=== PATIENT | male | born 2000 | race Caucasian/White ===

== ENCOUNTER 2021-01-14 20:03 | Observation (INO) | payer OTHER ==
[~2021-01-14] VITALS: Ht 180.3 cm; Wt 72.6 kg
[2021-01-14 20:19] VITALS: BP 120/80
[2021-01-14 21:20] LABS: URINE BILIRUBIN NEGATIVE (Negative); URINE BLOOD NEGATIVE (Negative); URINE CLARITY CLEAR; URINE COLOR YELLOW; URINE GLUCOSE-RANDOM NEGATIVE (Negative); URINE KETONES 1+ (Negative); URINE LEUKOCYTES-REFLEX NEGATIVE (Negative); URINE NITRITE-REFLEX NEGATIVE (Negative); URINE PROTEIN TRACE (Negative)
[2021-01-14 21:34] LABS: HEMATOCRIT 43.8 % (42.0-52.0); HEMOGLOBIN 15.4 gm/dL (14.0-18.0); MCH 29.8 pg (26.0-34.0); MCHC 35.2 g/dL (28.0-37.0); MCV 84.6 fL (80.0-100.0); MPV 8.6 fl. (7.2-11.1); NUCLEATED RBCS 0 /100WBC; PLATELET COUNT* 234 thou/uL (150-400); RBC 5.18 mil/uL (4.50-6.00); WBC 20.6 thou/uL (4.0-11.0)
[2021-01-14 21:40] LABS: CALCIUM 8.9 mg/dL (8.5-10.1); POTASSIUM 3.5 mmol/L (3.5-5.1)
[2021-01-14 21:44] LABS: ALBUMIN 4.4 g/dL (3.4-5.0); TOTAL PROTEIN 8.2 g/dL (6.4-8.2)
[2021-01-14 22:32] LABS: ABSOLUTE LYMPHOCYTES 1.9 thou/uL (0.8-5.3); ABSOLUTE NEUTROPHILS 17.7 thou/uL (1.6-8.1); PLATELET ESTIMATE ADEQUATE
[2021-01-14 22:33] LABS: LARGE PLATELETS RARE
[2021-01-15] VITALS (7 sets, daily range): BP systolic 107–131; BP diastolic 59–86
--- NOTE | 2021-01-15 17:40 | NUR ---
PT ADMITTED FROM SURGERY. ADMISSION COMPLETE. DENIES NEED FOR PAIN MEDICATION. LAP SITES X3 TO ABD. UP AD REENA WITH STEADY GAIT. CALL LIGHT IN REACH.
[2021-01-16 00:25] VITALS: BP 118/75
--- NOTE | 2021-01-16 04:11 | NUR ---
PT A&O X 4. VSS ON RA. PAIN MANAGED WITH MORPHINE AND NORCO. UP INDEPENDENTLY. LAP SITES C/D/I. NO OTHER CONCERNS AT THIS TIME. CALL LIGHT WITHIN REACH. WILL CONTINUE TO MONITOR.
[2021-01-16 04:41] VITALS: BP 119/78
[2021-01-16 08:00] VITALS: BP 129/63
[2021-01-16 11:15] VITALS: BP 129/63
--- NOTE | 2021-01-16 11:51 | NUR ---
PT DISCHARGED HOME WITH ALL BELONGINGS ACCOMPANIED BY HIS MOTHER. SALINE LOCK REMOVED HUB INTACT. VSS AFEBRILE. PT DENIES PAIN AT DISCHARGE. PT HAS GOOD UNDERSTANDING OF DISCHARGE INSTRUCTIONS. PT DISCHARGED HOME.
--- NOTE | 2021-01-19 10:45 | OP ---
[address] [address] OPERATIVE REPORT Name: GURU GARZA Room: [address] Rubi Mcrae#: [id number] Admission: 01/14/21 Attend Phys: Neel Hemphill MD Discharge: 01/16/21 Date of : 89 Report #: [id number] THIS REPORT FOR: cc: FAM - No family physician/PCP FAM - No family physician/PCP Ricky Jaramillo MD ~ DOC #: [id number] Ricky Jaramillo MD DATE OF SURGERY: 01/15/2021 PREOPERATIVE DIAGNOSIS: Acute appendicitis. POSTOPERATIVE DIAGNOSIS: Acute perforated appendicitis. OPERATION: Laparoscopic appendectomy. SURGEON: Ricky Jaramillo MD ANESTHESIA: General. ESTIMATED BLOOD LOSS: Minimal. SPECIMENS: Appendix. DESCRIPTION OF PROCEDURE: After informed consent was obtained, the patient was brought to the operating room and placed supine. SCDs were placed and working, preoperative antibiotics were administered, general anesthesia was induced. The abdomen was prepped and draped in the usual sterile fashion. A 10 mm incision was made below the umbilicus. Fascia was incised and a trocar was placed. Pneumoperitoneum was established. Right upper quadrant and left lower quadrant 5 mm trocars were placed. The appendix was in the right upper quadrant. It was visualized. It was perforated. I grasped the appendix and retracted it anteriorly. I was able to ligate the mesoappendix using a LigaSure device. There was excellent hemostasis. Once I had cleaned off the base of the appendix. It was ligated using a PDS Endoloop. The appendix was then cut and placed into an Endopouch and removed. The area was then irrigated. The fascia was then closed with a ehgxfj-bj-grvze 0 Vicryl. Skin was closed with 4-0 Monocryl. Incisions were dressed with Steri-Strips. COMPLICATIONS: None. DISPOSITION: The patient was taken to recovery in satisfactory condition[place] [address] OPERATIVE REPORT Name: GURU GARZA Room: [address]R.#: [id number] Admission: 01/14/21 Attend Phys: Neel Hemphill MD Discharge: 01/16/21 Date of : 89 Report #: [id number] JDP/RAN <ELECTRONICALLY SIGNED> By: Ricky Jaramillo MD 01/19/21 1045 1231 [id number] Jaramillo MD /nt
--- NOTE | 2021-01-20 17:07 | PATH ---
[address] [address] PATHOLOGY RPT PROCEDURE Name: DEVENDRA GARZA Room: [address] Rubi Mcrae#: [id number] Admission: 01/14/21 Date of : 89 Discharge: 01/16/21 Report #: [id number] Path Case #: [id number] [facility] Accession Number: [id number] . 01 Material submitted: . appendix - APPENDIX . 01 Clinical history: . ACUTE APPENDICITIS PERFORATED APPENDICITIS . 02 Diagnosis: Appendix: - Acute gangrenous appendicitis, periappendicitis and serositis. (ALYSSA:jani; 01/20/2021) MBR 01/20/2021 [facility] Local . 02 Electronically signed: . Ashok Pinzon MD, Pathologist NPI- [id number] . 01 Gross description: . The specimen is received in formalin, labeled "Garza, Devendra", "appendix". Received is an elongated, intact appendix measuring 5.8 cm in length and up to 0.9 cm in diameter. The serosal surface displays a roughened, wrinkled, dark kingsley-dark brown appearance with various pale zuleta-kingsley adhesions and thin layers of pale green, fibrinopurulent exudate. No grossly identifiable perforation is present. Sectioning through the appendix reveals a patent lumen free of fecaliths and mass lesions. Ice Hockey Coach sections are submitted in cassette A1.(SNA; 01/17/2021) ABRAHAM/LEX 01/20/2021 1622 Local . 02 Pathologist provided ICD-10: K35.20 . 02 CPT . 444338 Specimen Comment: A courtesy copy of this report has been sent to [phone] Specimen Comment: Report sent to / DR LIEBERMAN Performed at: [address], [place], [place] [id number] MD Bill Dominguez MD Phone: [phone] Performed at: 02 [facility] [address], [place], [place] [id number] MD Ashok Pinzon MD Phone: [phone]
== END 2021-01-19 11:56 | disposition home or self-care (01) ==
LOC: M.ERS 20:03 → M.ORTHSURG 23:03 → M.TBA-ER 23:03 → M.ERS 23:03 → M.ORTHSURG 23:03 → M.TBA-ER 23:03 → M.ORTHSURG 01-15 15:06
PROVIDERS: Nurse Practitioner Family; ADMIT Surgery; ATTEND Surgery
DX: K35.33 Acute appendicitis with perforation, localized peritonitis, and gangrene, with abscess (principal); Z79.899 Other long term (current) drug therapy